=== PATIENT | female | born 1940 | race Caucasian/White ===

== ENCOUNTER 2018-01-18 11:07 | Inpatient (IN) ==
[2018-01-18] MEDS ORDERED: MORPHINE 2 MG/1 ML SYRINGE IV STA (12:17)
[2018-01-18] MEDS ORDERED: ONDANSETRON 4 MG/2 ML VIAL IV STA (12:17)
[2018-01-18] MEDS ORDERED: MORPHINE 2 MG/1 ML SYRINGE ONE ×2 (12:28→15:32)
[2018-01-18] MEDS ORDERED: ONDANSETRON 4 MG/2 ML VIAL ONE (12:29)
[2018-01-18 12:42] LABS: Basophils # 0.1 10*3/uL (0.0-0.2); Basophils % 0.5 % (0.0-0.8); Eosinophils # 0.1 10*3/uL (0.0-0.87); Eosinophils % 0.8 % (0.00-10.9); Hemoglobin 10.6 GM/DL (12.0-16.0); Immature Granulocytes % 0.5 %; Immature Granulocytes Absolute 0.06 #; Lymphocytes # 1.8 10*3/uL (1.4-4.0); Lymphocytes % 14.8 % (21.3-54.2); Mean Corpuscular HGB Conc 31.2 GM/DL (32-36); Mean Corpuscular Hemoglobin 29 PG (27-34); Mean Corpuscular Volume 92.1 FL (87-102); Mean Platelet Volume 10.6 FL (9.6-12.0); Monocytes # 0.8 10*3/uL (0.11-0.8); Monocytes % 6.6 % (1.7-12.7); Neutrophils # 9.3 10*3/uL (1.4-7.4); Neutrophils % 76.8 % (38.7-73.9); Platelet Count 296 T/CUMM (130-400); Red Blood Count 3.69 MC/CUMM (3.8-5.5); Red Cell Distribution Width 13.5 % (9.3-17.3); White Blood Count 12.1 T/CUMM (4-12)
[2018-01-18 13:04] LABS: Alanine Aminotransferase 18 U/L (13-56); Albumin 3.3 G/DL (3.4-5.0); Alkaline Phosphatase 118 U/L (45-117); Aspartate Amino Transferase 17 U/L (0-37); Bilirubin,Total < 0.39 MG/DL (0.2-1.0); Blood Urea Nitrogen 16 MG/DL (7-18); Calcium 8.9 MG/DL (8.5-10.1); Glucose 105 MG/DL (74-106); Osmolality,Calculated 275.7 MOS/KG (273-304); Potassium 4.2 MMOL/L (3.5-5.1); Sodium 138 MMOL/L (136-145); Total Protein 6.6 G/DL (6.4-8.3)
[2018-01-18] MEDS ORDERED: ACETAMINOPHEN 325 MG TABLET PO PRN (14:00)
[2018-01-18] MEDS: MORPHINE 2 MG/1 ML SYRINGE IV PRN ×2 (15:34→19:23)
[2018-01-18 15:39] LABS: Apearance,Urine CLEAR (Clear); Bilirubin,Urine Negative (Negative); Blood, Urine Negative (Negative); Glucose,Urine (UA) Negative (Negative); Ketones,Urine Negative (Negative); Mucus,Urine Occasional /LPF (Occasional); Nitrite,Urine Negative (Negative); Protein,Urine Negative; RBC,Urine <1 /HPF (0-4); Squamous Epithelial Cell,Urine Occasional /HPF (0-10); Urine Color Yellow (Yellow); Urine Specific Gravity 1.013 (1.001-1.035); Urine Urobilinogen < 2.0 EU/DL (0.2-1.0); WBC,Urine <1 /HPF (0-6)
[2018-01-18] MEDS: SODIUM CHLORIDE 0.9% 1,000 ML IV SCH (15:52)
[2018-01-18] MEDS ORDERED: LABETALOL 20 MG/4 ML SYRINGE IV PRN (18:32)
[2018-01-18] MEDS: FLUTICASONE/SALMETEROL 250-50 DISKUS 14 DOSE INH SCH (20:34)
[2018-01-18] MEDS: TAMOXIFEN 10 MG TABLET PO SCH (20:34)
[2018-01-18] MEDS: amLODIPine 10 MG TABLET PO SCH (20:34)
[2018-01-18] MEDS: traZODone 50 MG TABLET PO SCH (20:34)
[2018-01-18] MEDS: AMITRIPTYLINE 50 MG TABLET PO SCH (22:34)
[2018-01-19] MEDS: MORPHINE 2 MG/1 ML SYRINGE IV PRN ×2 (00:44→05:20)
[2018-01-19] MEDS: ONDANSETRON 4 MG/2 ML VIAL IV PRN ×4 (00:49→21:04)
[2018-01-19] MEDS: SODIUM CHLORIDE 0.9% 1,000 ML IV SCH ×3 (00:54→22:23)
[2018-01-19 06:24] LABS: Basophils # 0.1 10*3/uL (0.0-0.2); Basophils % 0.5 % (0.0-0.8); Eosinophils # 0.1 10*3/uL (0.0-0.87); Hematocrit 33.1 VOL% (35.7-47.0); Hemoglobin 10.8 GM/DL (12.0-16.0); Immature Granulocytes % 0.5 %; Immature Granulocytes Absolute 0.06 #; Lymphocytes # 1.9 10*3/uL (1.4-4.0); Lymphocytes % 15.2 % (21.3-54.2); Mean Corpuscular HGB Conc 32.6 GM/DL (32-36); Mean Corpuscular Hemoglobin 29 PG (27-34); Mean Corpuscular Volume 90.2 FL (87-102); Mean Platelet Volume 10.4 FL (9.6-12.0); Monocytes % 7.9 % (1.7-12.7); Neutrophils # 9.4 10*3/uL (1.4-7.4); Neutrophils % 74.9 % (38.7-73.9); Platelet Count 259 T/CUMM (130-400); Red Blood Count 3.67 MC/CUMM (3.8-5.5); Red Cell Distribution Width 13.6 % (9.3-17.3); White Blood Count 12.5 T/CUMM (4-12)
[2018-01-19 06:57] LABS: Calcium 8.6 MG/DL (8.5-10.1); Osmolality,Calculated 274.8 MOS/KG (273-304); Potassium 4.3 MMOL/L (3.5-5.1)
[2018-01-19 07:02] LABS: % Iron Saturation 16.5 % (18-50); Ferritin 19.7 ng/ml (8-252)
[2018-01-19 07:07] LABS: Folate 9.3 NG/ML (5.4-24.0); Vitamin B12 603 PG/ML (211-911)
[2018-01-19] MEDS ORDERED: ceFAZolin 1,000 MG in SYRINGE 1 EACH IV ONE (08:00)
[2018-01-19 08:05] LABS: Sedimentation Rate-Westergren 45 MM/HR (0-30)
[2018-01-19] MEDS ORDERED: ONDANSETRON 4 MG/2 ML VIAL ONE ×2 (09:20→11:30)
[2018-01-19] MEDS: FLUTICASONE/SALMETEROL 250-50 DISKUS 14 DOSE INH SCH ×2 (09:50→21:13)
[2018-01-19] MEDS: PANTOPRAZOLE 40 MG TABLET PO SCH (09:51)
[2018-01-19] MEDS ORDERED: PROMETHAZINE 25 MG/1 ML VIAL IM PRN (10:00)
[2018-01-19] MEDS ORDERED: TEMAZEPAM 7.5 MG CAPSULE PO PRN (10:00)
[2018-01-19] MEDS ORDERED: LACTULOSE 20 GM/30 ML UDCUP PO PRN (10:00)
[2018-01-19] MEDS ORDERED: BISACODYL 10 MG SUPP RECTAL PRN (10:00)
[2018-01-19] MEDS ORDERED: MAGNESIUM HYDROXIDE SUSP 30 ML UDCUP PO PRN (10:00)
[2018-01-19] MEDS ORDERED: diphenhydrAMINE CAP 25 MG CAPSULE PO PRN (10:00)
[2018-01-19] MEDS ORDERED: MORPHINE 2 MG/1 ML SYRINGE IV PRN (10:09)
[2018-01-19] MEDS ORDERED: PROPOFOL 200 MG/20 ML VIAL IV ONE (11:28)
[2018-01-19] MEDS ORDERED: fentaNYL 100 MCG/2 ML VIAL ONE (11:29)
[2018-01-19] MEDS ORDERED: ROCURONIUM 100 MG/10 ML VIAL IV ONE (11:29)
[2018-01-19] MEDS ORDERED: SEVOFLURANE 1 UNIT/15 MINUTE INH ONE (11:29)
[2018-01-19] MEDS ORDERED: SUCCINYLCHOLINE 200 MG/10 ML VIAL ONE (11:30)
[2018-01-19] MEDS ORDERED: TRANEXAMIC ACID 1,000 MG/10 ML VIAL IV ONE (11:31)
[2018-01-19] MEDS ORDERED: ACETAMINOPHEN 1,000 MG/100 ML VIAL IV ONE (11:31)
[2018-01-19] MEDS ORDERED: GLYCOPYRROLATE 0.4 MG/2 ML VIAL ONE (11:31)
[2018-01-19] MEDS ORDERED: NEOSTIGMINE 10 MG/10 ML VIAL ONE (11:32)
[2018-01-19 12:12] LABS: Hemoglobin A1 (Alkaline) 97.8 % (96.5-98.5); Hemoglobin A2 (Alkaline) 2.2 % (1.5-3.5)
[2018-01-19] MEDS: ceFAZolin 1,000 MG in SYRINGE 1 EACH IV SCH ×2 (15:15→21:11)
[2018-01-19] MEDS ORDERED: ONDANSETRON 4 MG/2 ML VIAL IV ONE (16:47)
[2018-01-19] MEDS: traZODone 50 MG TABLET PO SCH (21:12)
[2018-01-19] MEDS: amLODIPine 10 MG TABLET PO SCH (21:12)
[2018-01-19] MEDS: AMITRIPTYLINE 50 MG TABLET PO SCH (21:13)
[2018-01-19] MEDS: DOCUSATE SODIUM 100 MG CAPSULE PO SCH (21:13)
[2018-01-19] MEDS: TAMOXIFEN 10 MG TABLET PO SCH (21:13)
[2018-01-20] MEDS: ONDANSETRON 4 MG/2 ML VIAL IV PRN ×3 (01:47→15:02)
[2018-01-20] MEDS: FONDAPARINUX 2.5 MG/0.5 ML SYRINGE SUBCUT SCH (05:26)
[2018-01-20 06:03] LABS: Basophils % 0.2 % (0.0-0.8); Hematocrit 28.5 VOL% (35.7-47.0); Hemoglobin 9.1 GM/DL (12.0-16.0); Immature Granulocytes % 0.4 %; Immature Granulocytes Absolute 0.09 #; Lymphocytes # 1.9 10*3/uL (1.4-4.0); Lymphocytes % 9.3 % (21.3-54.2); Mean Corpuscular HGB Conc 31.9 GM/DL (32-36); Mean Corpuscular Hemoglobin 29 PG (27-34); Mean Corpuscular Volume 90.5 FL (87-102); Mean Platelet Volume 10.4 FL (9.6-12.0); Monocytes # 1.5 10*3/uL (0.11-0.8); Monocytes % 7.2 % (1.7-12.7); Neutrophils # 17.1 10*3/uL (1.4-7.4); Neutrophils % 82.9 % (38.7-73.9); Platelet Count 231 T/CUMM (130-400); Red Blood Count 3.15 MC/CUMM (3.8-5.5); Red Cell Distribution Width 13.5 % (9.3-17.3); White Blood Count 20.6 T/CUMM (4-12)
[2018-01-20 06:28] LABS: Giant Platelets Few; Hypochromasia 1+; Platelet Estimate Adequate
[2018-01-20 06:41] LABS: Calcium 8.2 MG/DL (8.5-10.1); Potassium 3.9 MMOL/L (3.5-5.1)
[2018-01-20] MEDS: SODIUM CHLORIDE 0.9% 1,000 ML IV SCH ×2 (06:48→20:37)
[2018-01-20] MEDS: PANTOPRAZOLE 40 MG TABLET PO SCH (09:49)
[2018-01-20] MEDS: DOCUSATE SODIUM 100 MG CAPSULE PO SCH ×2 (09:49→20:37)
[2018-01-20] MEDS: FLUTICASONE/SALMETEROL 250-50 DISKUS 14 DOSE INH SCH ×2 (09:50→20:36)
[2018-01-20] MEDS: FERROUS SULFATE 325 MG TABLET PO SCH ×2 (12:32→20:36)
[2018-01-20] MEDS: cefTRIAXone 2,000 MG in SYRINGE 1 EACH IV SCH (12:33)
[2018-01-20] MEDS: AMITRIPTYLINE 50 MG TABLET PO SCH (20:36)
[2018-01-20] MEDS: TAMOXIFEN 10 MG TABLET PO SCH (20:36)
[2018-01-20] MEDS: traZODone 50 MG TABLET PO SCH (20:37)
[2018-01-20] MEDS: amLODIPine 10 MG TABLET PO SCH (20:37)
[2018-01-21] MEDS: FONDAPARINUX 2.5 MG/0.5 ML SYRINGE SUBCUT SCH (03:46)
[2018-01-21 05:28] LABS: Basophils % 0.3 % (0.0-0.8); Eosinophils # 0.1 10*3/uL (0.0-0.87); Eosinophils % 0.9 % (0.00-10.9); Hematocrit 26.8 VOL% (35.7-47.0); Hemoglobin 8.5 GM/DL (12.0-16.0); Immature Granulocytes % 0.6 %; Lymphocytes # 1.6 10*3/uL (1.4-4.0); Lymphocytes % 10.1 % (21.3-54.2); Mean Corpuscular HGB Conc 31.7 GM/DL (32-36); Mean Corpuscular Hemoglobin 29 PG (27-34); Mean Corpuscular Volume 92.4 FL (87-102); Mean Platelet Volume 10.7 FL (9.6-12.0); Monocytes # 1.4 10*3/uL (0.11-0.8); Neutrophils # 12.5 10*3/uL (1.4-7.4); Neutrophils % 79.1 % (38.7-73.9); Platelet Count 209 T/CUMM (130-400); Red Cell Distribution Width 13.8 % (9.3-17.3); White Blood Count 15.8 T/CUMM (4-12)
[2018-01-21 05:54] LABS: Calcium 7.9 MG/DL (8.5-10.1); Osmolality,Calculated 275.7 MOS/KG (273-304); Potassium 4.3 MMOL/L (3.5-5.1)
[2018-01-21] MEDS: FERROUS SULFATE 325 MG TABLET PO SCH ×2 (10:05→21:35)
[2018-01-21] MEDS: DOCUSATE SODIUM 100 MG CAPSULE PO SCH ×2 (10:06→21:35)
[2018-01-21] MEDS: PANTOPRAZOLE 40 MG TABLET PO SCH (10:06)
[2018-01-21] MEDS: FLUTICASONE/SALMETEROL 250-50 DISKUS 14 DOSE INH SCH ×2 (10:14→21:35)
[2018-01-21] MEDS: SODIUM CHLORIDE 0.9% 1,000 ML IV SCH ×2 (10:16→23:35)
[2018-01-21] MEDS: cefTRIAXone 2,000 MG in SYRINGE 1 EACH IV SCH (12:51)
[2018-01-21] MEDS ORDERED: TUBERCULIN SKIN TEST 0.1 ML SYRINGE INTRADERM ONE (14:44)
[2018-01-21] MEDS: ONDANSETRON 4 MG/2 ML VIAL IV PRN (15:56)
[2018-01-21] MEDS: amLODIPine 10 MG TABLET PO SCH (21:35)
[2018-01-21] MEDS: TAMOXIFEN 10 MG TABLET PO SCH (21:35)
[2018-01-21] MEDS: traZODone 50 MG TABLET PO SCH (21:35)
[2018-01-21] MEDS: AMITRIPTYLINE 50 MG TABLET PO SCH (21:35)
[2018-01-22] MEDS: FONDAPARINUX 2.5 MG/0.5 ML SYRINGE SUBCUT SCH (05:00)
[2018-01-22 05:11] LABS: Basophils # 0.1 10*3/uL (0.0-0.2); Basophils % 0.3 % (0.0-0.8); Eosinophils # 0.1 10*3/uL (0.0-0.87); Eosinophils % 0.8 % (0.00-10.9); Hematocrit 26.8 VOL% (35.7-47.0); Hemoglobin 8.8 GM/DL (12.0-16.0); Immature Granulocytes % 0.7 %; Immature Granulocytes Absolute 0.11 #; Lymphocytes # 1.5 10*3/uL (1.4-4.0); Lymphocytes % 8.7 % (21.3-54.2); Mean Corpuscular HGB Conc 32.8 GM/DL (32-36); Mean Corpuscular Hemoglobin 30 PG (27-34); Mean Corpuscular Volume 89.9 FL (87-102); Mean Platelet Volume 10.7 FL (9.6-12.0); Monocytes # 1.2 10*3/uL (0.11-0.8); Neutrophils # 13.9 10*3/uL (1.4-7.4); Neutrophils % 82.5 % (38.7-73.9); Platelet Count 242 T/CUMM (130-400); Red Blood Count 2.98 MC/CUMM (3.8-5.5); Red Cell Distribution Width 14.1 % (9.3-17.3); White Blood Count 16.9 T/CUMM (4-12)
[2018-01-22] MEDS ORDERED: ALBUTEROL/IPRATROPIUM 3 ML NEB RESP TX ONE (09:21)
[2018-01-22] MEDS ORDERED: FUROSEMIDE 20 MG/2 ML VIAL IV SCH (09:30)
[2018-01-22] MEDS: FERROUS SULFATE 325 MG TABLET PO SCH ×2 (09:34→22:05)
[2018-01-22] MEDS: PANTOPRAZOLE 40 MG TABLET PO SCH (09:34)
[2018-01-22] MEDS: DOCUSATE SODIUM 100 MG CAPSULE PO SCH ×2 (09:34→22:05)
[2018-01-22] MEDS: FLUTICASONE/SALMETEROL 250-50 DISKUS 14 DOSE INH SCH ×2 (09:34→22:20)
[2018-01-22] MEDS: ALBUTEROL/IPRATROPIUM 3 ML NEB RESP TX SCH ×2 (12:01→19:15)
[2018-01-22] MEDS: ENOXAPARIN 80 MG/0.8 ML SYRINGE SUBCUT SCH ×2 (13:41→23:53)
[2018-01-22 13:48] LABS: ABG Base Excess 4.6 MMOL/L (-2.5-2.5); ABG HCO3 28.5 MMOL/L (20-26); ABG Oxygen Saturation 90.4 % (95-100); ABG PCO2 39.1 MM HG (35-48); ABG PH 7.472 (7.35-7.45); ABG PO2 57.9 MM HG (80-95); ABG TCO2 26.3 MMOL/L (23-27); Allen Test Positive; Pt O2 Delivery Device Venturi Mask
[2018-01-22] MEDS: cefTRIAXone 2,000 MG in SYRINGE 1 EACH IV SCH (13:55)
[2018-01-22] MEDS: TAMOXIFEN 10 MG TABLET PO SCH (22:04)
[2018-01-22] MEDS: traZODone 50 MG TABLET PO SCH (22:04)
[2018-01-22] MEDS: AMITRIPTYLINE 50 MG TABLET PO SCH (22:05)
[2018-01-22] MEDS: amLODIPine 10 MG TABLET PO SCH (22:10)
[2018-01-22 23:37] LABS: Apearance,Urine Slightly Hazy (Clear); Bilirubin,Urine Negative (Negative); Blood, Urine Negative (Negative); Glucose,Urine (UA) Negative (Negative); Hyaline Casts,Urine 3 /LPF (0-3); Ketones,Urine Negative (Negative); Mucus,Urine Occasional /LPF (Occasional); Nitrite,Urine Negative (Negative); Protein,Urine Negative; RBC,Urine 1 /HPF (0-4); Squamous Epithelial Cell,Urine Occasional /HPF (0-10); Urine Color Yellow (Yellow); Urine Specific Gravity 1.016 (1.001-1.035); Urine Urobilinogen < 2.0 EU/DL (0.2-1.0); WBC,Urine 2 /HPF (0-6)
[2018-01-23] MEDS: ALBUTEROL/IPRATROPIUM 3 ML NEB RESP TX SCH ×4 (00:15→20:59)
[2018-01-23] MEDS: FERROUS SULFATE 325 MG TABLET PO SCH ×2 (08:19→21:42)
[2018-01-23] MEDS: FLUTICASONE/SALMETEROL 250-50 DISKUS 14 DOSE INH SCH ×2 (08:19→22:10)
[2018-01-23] MEDS: DOCUSATE SODIUM 100 MG CAPSULE PO SCH ×2 (08:19→21:42)
[2018-01-23] MEDS: PANTOPRAZOLE 40 MG TABLET PO SCH (08:19)
[2018-01-23] MEDS: FUROSEMIDE 40 MG/4 ML VIAL IV SCH (08:19)
[2018-01-23] MEDS: ENOXAPARIN 80 MG/0.8 ML SYRINGE SUBCUT SCH (12:32)
[2018-01-23] MEDS: cefTRIAXone 2,000 MG in SYRINGE 1 EACH IV SCH (12:34)
[2018-01-23] MEDS: ONDANSETRON 4 MG/2 ML VIAL IV PRN (17:08)
[2018-01-23] MEDS: TAMOXIFEN 10 MG TABLET PO SCH (21:41)
[2018-01-23] MEDS: amLODIPine 10 MG TABLET PO SCH (21:41)
[2018-01-23] MEDS: traZODone 50 MG TABLET PO SCH (21:41)
[2018-01-23] MEDS: AMITRIPTYLINE 50 MG TABLET PO SCH ×2 (21:42)
[2018-01-23] MEDS: APIXABAN 5 MG TABLET PO SCH (21:42)
[2018-01-24] MEDS: ALBUTEROL/IPRATROPIUM 3 ML NEB RESP TX SCH ×4 (00:19→20:02)
[2018-01-24] MEDS: FUROSEMIDE 40 MG/4 ML VIAL IV SCH (09:36)
[2018-01-24] MEDS: FERROUS SULFATE 325 MG TABLET PO SCH ×2 (09:39→21:10)
[2018-01-24] MEDS: APIXABAN 5 MG TABLET PO SCH ×2 (09:39→21:10)
[2018-01-24] MEDS: DOCUSATE SODIUM 100 MG CAPSULE PO SCH ×2 (09:39→21:10)
[2018-01-24] MEDS: PANTOPRAZOLE 40 MG TABLET PO SCH (09:39)
[2018-01-24] MEDS: FLUTICASONE/SALMETEROL 250-50 DISKUS 14 DOSE INH SCH ×2 (10:05→21:12)
[2018-01-24] MEDS: methylPREDNISolone SOD SUC 40 MG/1 ML VIAL IV SCH ×2 (10:55→21:09)
[2018-01-24] MEDS: cefTRIAXone 2,000 MG in SYRINGE 1 EACH IV SCH (12:44)
[2018-01-24] MEDS: traZODone 50 MG TABLET PO SCH (21:10)
[2018-01-24] MEDS: AMITRIPTYLINE 50 MG TABLET PO SCH ×2 (21:10→21:17)
[2018-01-24] MEDS: TAMOXIFEN 10 MG TABLET PO SCH (21:16)
[2018-01-25] MEDS: ALBUTEROL/IPRATROPIUM 3 ML NEB RESP TX SCH ×3 (02:55→13:15)
[2018-01-25 05:35] LABS: Basophils % 0.1 % (0.0-0.8); Eosinophils % 0.1 % (0.00-10.9); Hematocrit 28.2 VOL% (35.7-47.0); Hemoglobin 9.3 GM/DL (12.0-16.0); Immature Granulocytes % 0.8 %; Immature Granulocytes Absolute 0.14 #; Mean Corpuscular Hemoglobin 29 PG (27-34); Mean Corpuscular Volume 89.2 FL (87-102); Mean Platelet Volume 10.9 FL (9.6-12.0); Monocytes # 0.5 10*3/uL (0.11-0.8); Monocytes % 2.7 % (1.7-12.7); NRBC # 0.02 10*3/uL; Neutrophils # 15.1 10*3/uL (1.4-7.4); Neutrophils % 90.3 % (38.7-73.9); Platelet Count 349 T/CUMM (130-400); Red Blood Count 3.16 MC/CUMM (3.8-5.5); Red Cell Distribution Width 14.1 % (9.3-17.3); White Blood Count 16.7 T/CUMM (4-12)
[2018-01-25 05:43] LABS: Calcium 8.8 MG/DL (8.5-10.1); Osmolality,Calculated 278.8 MOS/KG (273-304); Potassium 4.1 MMOL/L (3.5-5.1)
[2018-01-25] MEDS ORDERED: METOPROLOL SUCCINATE XL 25 MG TABLET PO SCH (09:00)
[2018-01-25] MEDS ORDERED: predniSONE 20 MG TABLET PO SCH (09:00)
[2018-01-25] MEDS ORDERED: LISINOPRIL 5 MG TABLET PO SCH (09:00)
[2018-01-25] MEDS: FUROSEMIDE 40 MG/4 ML VIAL IV SCH (09:20)
[2018-01-25] MEDS: FERROUS SULFATE 325 MG TABLET PO SCH (09:21)
[2018-01-25] MEDS: APIXABAN 5 MG TABLET PO SCH (09:21)
[2018-01-25] MEDS: DOCUSATE SODIUM 100 MG CAPSULE PO SCH (09:21)
[2018-01-25] MEDS: PANTOPRAZOLE 40 MG TABLET PO SCH (09:21)
[2018-01-25] MEDS: FLUTICASONE/SALMETEROL 250-50 DISKUS 14 DOSE INH SCH (09:22)
[2018-01-25] MEDS ORDERED: ASPIRIN EC 81 MG TABLET PO SCH (10:30)
[2018-01-25] MEDS: cefTRIAXone 2,000 MG in SYRINGE 1 EACH IV SCH (11:17)
[2018-01-25 11:31] VITALS: BP 131/58
== END 2018-01-25 15:25 | disposition swing bed (61) | DRG 469 ==
LOC: EDUNIT# → EDBD → N.ED 11:07 → N.EDINP 13:37 → SUATTDRO 13:37 → N.3E 17:40 → N.CC 01-22 11:28 → N.3E 01-23 12:06
PROVIDERS: ADMIT Hospitalist

== ENCOUNTER 2019-03-03 19:40 | Inpatient (IN) ==
[2019-03-03] MEDS ORDERED: MORPHINE 4 MG/1 ML VIAL IV STA (20:08)
[2019-03-03] MEDS ORDERED: FUROSEMIDE 100 MG/10 ML VIAL IV STA (20:08)
[2019-03-03] MEDS ORDERED: ONDANSETRON 4 MG/2 ML VIAL IV STA (20:08)
[2019-03-03] MEDS ORDERED: ALBUTEROL NEB SOLN 5 MG/ML 20 ML/BOTTLE RESP TX SCH (20:30)
[2019-03-03] MEDS ORDERED: SODIUM CHLORIDE 0.9% 1,700 ML IV ONE (20:49)
[2019-03-03 21:14] LABS: CKMB % 9.3 %
[2019-03-03 21:25] LABS: Basophils % 0.2 % (0.0-0.8); Hematocrit 26.2 VOL% (35.7-47.0); Hemoglobin 7.2 GM/DL (12.0-16.0); Immature Granulocytes % 1.2 %; Immature Granulocytes Absolute 0.26 #; Lymphocytes # 2.3 10*3/uL (1.4-4.0); Lymphocytes % 10.3 % (21.3-54.2); Mean Corpuscular HGB Conc 27.5 GM/DL (32-36); Mean Corpuscular Hemoglobin 23 PG (27-34); Mean Corpuscular Volume 82.1 FL (87-102); Mean Platelet Volume 11.1 FL (9.6-12.0); Monocytes # 1.7 10*3/uL (0.11-0.8); Monocytes % 7.3 % (1.7-12.7); NRBC # 0.04 10*3/uL; Neutrophils # 18.2 10*3/uL (1.4-7.4); Platelet Count 318 T/CUMM (130-400); Red Blood Count 3.19 MC/CUMM (3.8-5.5); Red Cell Distribution Width 18.2 % (9.3-17.3); White Blood Count 22.5 T/CUMM (4-12)
[2019-03-03 21:34] LABS: Lymphocytes 6 % (20-55); Segmented Neutrophils 88 % (50-85); Total Cells Counted 100
[2019-03-03 21:36] LABS: Platelet Estimate Normal; Polychromasia Few
[2019-03-03 21:37] LABS: Anisocytosis Slight
[2019-03-03 21:38] LABS: Hypochromasia Slight; Stomatocytes Few
[2019-03-03 21:39] LABS: Troponin I 5.77 NG/ML (0.00-0.045)
[2019-03-03] MEDS ORDERED: ALBUTEROL 2.5 MG/3 ML NEB RESP TX PRN (21:39)
[2019-03-03 21:41] LABS: Alanine Aminotransferase 33 U/L (13-56); Albumin 3.1 G/DL (3.4-5.0); Alkaline Phosphatase 59 U/L (45-117); Aspartate Amino Transferase 51 U/L (0-37); Bilirubin,Total < 0.39 MG/DL (0.2-1.0); Blood Urea Nitrogen 34 MG/DL (7-18); Glucose 98 MG/DL (74-106); Potassium 5.1 MMOL/L (3.5-5.1); Sodium 136 MMOL/L (136-145); Total Protein 6.2 G/DL (6.4-8.3)
[2019-03-03] MEDS ORDERED: DOCUSATE SODIUM 100 MG CAPSULE PO PRN (21:51)
[2019-03-03] MEDS ORDERED: ONDANSETRON 4 MG/2 ML VIAL IV PRN (21:51)
[2019-03-03] MEDS ORDERED: MORPHINE 4 MG/1 ML VIAL IV PRN (21:51)
[2019-03-03] MEDS ORDERED: ACETAMINOPHEN 325 MG TABLET PO PRN (21:51)
[2019-03-03 22:11] LABS: Apearance,Urine CLEAR (Clear); Bilirubin,Urine Negative (Negative); Blood, Urine Negative (Negative); Glucose,Urine (UA) Negative (Negative); Ketones,Urine Negative (Negative); Mucus,Urine Occasional /LPF (Occasional); Nitrite,Urine Negative (Negative); Protein,Urine Negative; Squamous Epithelial Cell,Urine Occasional /HPF (0-10); Urine Color Yellow (Yellow); Urine Specific Gravity 1.021 (1.001-1.035); Urine Urobilinogen < 2.0 EU/DL (0.2-1.0); WBC,Urine 2 /HPF (0-6)
[2019-03-03] MEDS ORDERED: NITROGLYCERIN SL 0.4 MG TABLET SL PRN (22:19)
[2019-03-03] MEDS ORDERED: SODIUM CHLORIDE 0.9% 1,000 ML IV PRN (22:38)
[2019-03-03] MEDS: traZODone 50 MG TABLET PO SCH (22:59)
[2019-03-03] MEDS: TAMOXIFEN 10 MG TABLET PO SCH (23:00)
[2019-03-03] MEDS: methylPREDNISolone SOD SUC 40 MG/1 ML VIAL IV SCH (23:01)
[2019-03-03] MEDS: FLUTICASONE/SALMETEROL 250-50 DISKUS 14 DOSE INH SCH (23:01)
[2019-03-03] MEDS: AMITRIPTYLINE 50 MG TABLET PO SCH (23:01)
[2019-03-03] MEDS: FERROUS SULFATE 325 MG TABLET PO SCH (23:01)
[2019-03-03] MEDS: LISINOPRIL 5 MG TABLET PO SCH (23:01)
[2019-03-03] MEDS: LEVOFLOXACIN INJ 750 MG in PREMIX 1 EACH IV SCH (23:02)
[2019-03-04] MEDS: ALBUTEROL/IPRATROPIUM 3 ML NEB RESP TX SCH ×4 (00:35→18:43)
[2019-03-04] MEDS: PIPERACILLIN/TAZOBACTAM 3,375 MG in SODIUM CHLORIDE 0.9% 100 ML IV SCH ×4 (01:13→16:11)
[2019-03-04 02:46] LABS: Hematocrit 22.6 VOL% (35.7-47.0); Hemoglobin 6.5 GM/DL (12.0-16.0); Immature Granulocytes % 0.7 %; Immature Granulocytes Absolute 0.11 #; Lymphocytes # 1.1 10*3/uL (1.4-4.0); Lymphocytes % 7.4 % (21.3-54.2); Mean Corpuscular HGB Conc 28.8 GM/DL (32-36); Mean Corpuscular Hemoglobin 23 PG (27-34); Mean Corpuscular Volume 79.9 FL (87-102); Mean Platelet Volume 10.9 FL (9.6-12.0); Monocytes # 0.6 10*3/uL (0.11-0.8); Monocytes % 3.9 % (1.7-12.7); Neutrophils # 13.1 10*3/uL (1.4-7.4); Platelet Count 248 T/CUMM (130-400); Red Blood Count 2.83 MC/CUMM (3.8-5.5); Red Cell Distribution Width 18.2 % (9.3-17.3); White Blood Count 14.9 T/CUMM (4-12)
[2019-03-04 03:18] LABS: Calcium 7.6 MG/DL (8.5-10.1); Osmolality,Calculated 283.8 MOS/KG (273-304); Potassium 4.4 MMOL/L (3.5-5.1); Risk Ratio 3.48; Thyroid Stimulating Hormone 1.61 uIU/ml (0.358-3.74); VLDL CHOLESTEROL 30.2 MG/DL
[2019-03-04] MEDS ORDERED: FUROSEMIDE 20 MG/2 ML VIAL IV ONE (05:16)
[2019-03-04] MEDS: methylPREDNISolone SOD SUC 40 MG/1 ML VIAL IV SCH ×3 (05:49→21:01)
[2019-03-04] MEDS ORDERED: ENOXAPARIN 60 MG/0.6 ML SYRINGE SUBCUT SCH (06:00)
[2019-03-04] MEDS ORDERED: IPRATROPIUM 500 MCG/2.5 ML NEB RESP TX SCH (07:00)
[2019-03-04] MEDS: FUROSEMIDE 20 MG/2 ML VIAL IV SCH ×2 (08:32→16:11)
[2019-03-04 12:05] LABS: % Iron Saturation 48.2 % (18-50)
[2019-03-04 12:13] LABS: Folate > 24.0 NG/ML (5.4-24.0); Vitamin B12 476 PG/ML (211-911)
[2019-03-04] MEDS: DORNASE ALFA 2.5 MG/2.5 ML VIAL RESP TX SCH (13:09)
[2019-03-04 13:57] LABS: Hematocrit 32.8 VOL% (35.7-47.0)
[2019-03-04] MEDS ORDERED: TUBERCULIN SKIN TEST 0.1 ML SYRINGE INTRADERM ONE (14:02)
[2019-03-04 14:03] LABS: Hemoglobin 10.1 GM/DL (12.0-16.0)
[2019-03-04] MEDS: FERROUS SULFATE 325 MG TABLET PO SCH ×2 (14:08→21:01)
[2019-03-04] MEDS: METOPROLOL SUCCINATE XL 25 MG TABLET PO SCH (14:09)
[2019-03-04] MEDS: ASPIRIN EC 81 MG TABLET PO SCH (14:09)
[2019-03-04] MEDS: MONTELUKAST 10 MG TABLET PO SCH ×2 (14:09→21:12)
[2019-03-04] MEDS: APIXABAN 5 MG TABLET PO SCH ×2 (14:09→21:01)
[2019-03-04] MEDS: LISINOPRIL 5 MG TABLET PO SCH ×2 (14:09→21:01)
[2019-03-04] MEDS: PANTOPRAZOLE 20 MG TABLET PO SCH (14:09)
[2019-03-04] MEDS: FLUTICASONE/SALMETEROL 250-50 DISKUS 14 DOSE INH SCH ×2 (14:13→21:10)
[2019-03-04] MEDS: TAMOXIFEN 10 MG TABLET PO SCH (21:00)
[2019-03-04] MEDS: AMITRIPTYLINE 50 MG TABLET PO SCH (21:01)
[2019-03-04] MEDS: traZODone 50 MG TABLET PO SCH (21:01)
[2019-03-04] MEDS: LEVOFLOXACIN INJ 750 MG in PREMIX 1 EACH IV SCH (21:06)
[2019-03-05] MEDS: PIPERACILLIN/TAZOBACTAM 3,375 MG in SODIUM CHLORIDE 0.9% 100 ML IV SCH ×4 (00:07→23:50)
[2019-03-05] MEDS: ALBUTEROL/IPRATROPIUM 3 ML NEB RESP TX SCH ×4 (00:07→19:05)
[2019-03-05 04:35] LABS: Basophils % 0.1 % (0.0-0.8); Hematocrit 29.8 VOL% (35.7-47.0); Immature Granulocytes % 1.4 %; Immature Granulocytes Absolute 0.19 #; Lymphocytes # 1.2 10*3/uL (1.4-4.0); Lymphocytes % 8.5 % (21.3-54.2); Mean Corpuscular HGB Conc 30.2 GM/DL (32-36); Mean Corpuscular Hemoglobin 25 PG (27-34); Mean Platelet Volume 10.9 FL (9.6-12.0); Monocytes # 0.8 10*3/uL (0.11-0.8); NRBC # 0.02 10*3/uL; Neutrophils # 11.4 10*3/uL (1.4-7.4); Platelet Count 254 T/CUMM (130-400); Red Blood Count 3.68 MC/CUMM (3.8-5.5); Red Cell Distribution Width 17.2 % (9.3-17.3); White Blood Count 13.6 T/CUMM (4-12)
[2019-03-05 05:34] LABS: Calcium 7.7 MG/DL (8.5-10.1); Osmolality,Calculated 284.5 MOS/KG (273-304); Potassium 3.9 MMOL/L (3.5-5.1)
[2019-03-05] MEDS: methylPREDNISolone SOD SUC 40 MG/1 ML VIAL IV SCH ×3 (05:59→21:00)
[2019-03-05] MEDS: DORNASE ALFA 2.5 MG/2.5 ML VIAL RESP TX SCH ×2 (07:05→19:10)
[2019-03-05] MEDS: FERROUS SULFATE 325 MG TABLET PO SCH ×2 (09:28→21:00)
[2019-03-05] MEDS: APIXABAN 5 MG TABLET PO SCH ×2 (09:28→20:59)
[2019-03-05] MEDS: PANTOPRAZOLE 20 MG TABLET PO SCH (09:28)
[2019-03-05] MEDS: METOPROLOL SUCCINATE XL 25 MG TABLET PO SCH (09:29)
[2019-03-05] MEDS: MONTELUKAST 10 MG TABLET PO SCH ×2 (09:29→20:59)
[2019-03-05] MEDS: ASPIRIN EC 81 MG TABLET PO SCH (09:29)
[2019-03-05] MEDS: LISINOPRIL 5 MG TABLET PO SCH ×2 (09:29→20:59)
[2019-03-05] MEDS: FUROSEMIDE 20 MG/2 ML VIAL IV SCH ×2 (09:30→16:07)
[2019-03-05] MEDS: FLUTICASONE/SALMETEROL 250-50 DISKUS 14 DOSE INH SCH ×2 (09:41→21:04)
[2019-03-05] MEDS: traZODone 50 MG TABLET PO SCH (20:59)
[2019-03-05] MEDS: AMITRIPTYLINE 50 MG TABLET PO SCH (21:00)
[2019-03-05] MEDS: LEVOFLOXACIN INJ 750 MG in PREMIX 1 EACH IV SCH (21:00)
[2019-03-05] MEDS: TAMOXIFEN 10 MG TABLET PO SCH (21:03)
[2019-03-06] MEDS: CARVEDILOL 3.125 MG TABLET PO SCH ×2 (00:24→08:49)
[2019-03-06] MEDS: ALBUTEROL/IPRATROPIUM 3 ML NEB RESP TX SCH ×4 (00:46→19:23)
[2019-03-06] MEDS: methylPREDNISolone SOD SUC 40 MG/1 ML VIAL IV SCH ×3 (06:12→21:46)
[2019-03-06] MEDS: PIPERACILLIN/TAZOBACTAM 3,375 MG in SODIUM CHLORIDE 0.9% 100 ML IV SCH ×3 (06:15→23:59)
[2019-03-06] MEDS: DORNASE ALFA 2.5 MG/2.5 ML VIAL RESP TX SCH ×2 (07:11→19:30)
[2019-03-06] MEDS: MONTELUKAST 10 MG TABLET PO SCH ×2 (08:48→21:45)
[2019-03-06] MEDS: LISINOPRIL 5 MG TABLET PO SCH ×2 (08:48→21:45)
[2019-03-06] MEDS: ASPIRIN EC 81 MG TABLET PO SCH (08:49)
[2019-03-06] MEDS: APIXABAN 5 MG TABLET PO SCH ×2 (08:49→21:46)
[2019-03-06] MEDS: FLUTICASONE/SALMETEROL 250-50 DISKUS 14 DOSE INH SCH ×2 (08:49→21:44)
[2019-03-06] MEDS: FERROUS SULFATE 325 MG TABLET PO SCH ×2 (08:49→21:46)
[2019-03-06] MEDS: PANTOPRAZOLE 20 MG TABLET PO SCH (08:49)
[2019-03-06] MEDS: FUROSEMIDE 20 MG/2 ML VIAL IV SCH ×2 (08:50→15:02)
[2019-03-06] MEDS ORDERED: CARVEDILOL 3.125 MG TABLET PO ONE (16:01)
[2019-03-06] MEDS: traZODone 50 MG TABLET PO SCH (21:45)
[2019-03-06] MEDS: TAMOXIFEN 10 MG TABLET PO SCH (21:45)
[2019-03-06] MEDS: CARVEDILOL 6.25 MG TABLET PO SCH (21:45)
[2019-03-06] MEDS: AMITRIPTYLINE 50 MG TABLET PO SCH (21:46)
[2019-03-06] MEDS: LEVOFLOXACIN INJ 750 MG in PREMIX 1 EACH IV SCH (21:58)
[2019-03-07] MEDS: ALBUTEROL/IPRATROPIUM 3 ML NEB RESP TX SCH ×3 (01:00→13:18)
[2019-03-07 05:08] LABS: Basophils % 0.2 % (0.0-0.8); Hematocrit 31.8 VOL% (35.7-47.0); Hemoglobin 9.3 GM/DL (12.0-16.0); Immature Granulocytes % 1.3 %; Immature Granulocytes Absolute 0.19 #; Mean Corpuscular HGB Conc 29.2 GM/DL (32-36); Mean Corpuscular Hemoglobin 25 PG (27-34); Mean Corpuscular Volume 84.1 FL (87-102); Mean Platelet Volume 10.4 FL (9.6-12.0); Monocytes # 0.8 10*3/uL (0.11-0.8); Monocytes % 5.5 % (1.7-12.7); Neutrophils # 12.1 10*3/uL (1.4-7.4); Platelet Count 254 T/CUMM (130-400); Red Blood Count 3.78 MC/CUMM (3.8-5.5); Red Cell Distribution Width 19.3 % (9.3-17.3); White Blood Count 14.1 T/CUMM (4-12)
[2019-03-07 05:32] LABS: Albumin 2.3 G/DL (3.4-5.0); Bilirubin,Total 0.6 MG/DL (0.2-1.0); Calcium 7.9 MG/DL (8.5-10.1); Osmolality,Calculated 287.4 MOS/KG (273-304); Potassium 3.6 MMOL/L (3.5-5.1); Total Protein 5.3 G/DL (6.4-8.3)
[2019-03-07] MEDS: methylPREDNISolone SOD SUC 40 MG/1 ML VIAL IV SCH (05:52)
[2019-03-07] MEDS: PIPERACILLIN/TAZOBACTAM 3,375 MG in SODIUM CHLORIDE 0.9% 100 ML IV SCH ×2 (05:56→06:00)
[2019-03-07] MEDS: DORNASE ALFA 2.5 MG/2.5 ML VIAL RESP TX SCH (07:31)
[2019-03-07] MEDS: APIXABAN 5 MG TABLET PO SCH (08:35)
[2019-03-07] MEDS: FERROUS SULFATE 325 MG TABLET PO SCH (08:35)
[2019-03-07] MEDS: PANTOPRAZOLE 20 MG TABLET PO SCH (08:35)
[2019-03-07] MEDS: FUROSEMIDE 20 MG/2 ML VIAL IV SCH (08:35)
[2019-03-07] MEDS: FLUTICASONE/SALMETEROL 250-50 DISKUS 14 DOSE INH SCH (08:36)
[2019-03-07] MEDS: ASPIRIN EC 81 MG TABLET PO SCH (08:36)
[2019-03-07] MEDS: LISINOPRIL 5 MG TABLET PO SCH (08:36)
[2019-03-07] MEDS: MONTELUKAST 10 MG TABLET PO SCH (08:36)
[2019-03-07] MEDS: CARVEDILOL 6.25 MG TABLET PO SCH (08:36)
[2019-03-07 12:31] VITALS: BP 139/68
[2019-03-07] MEDS ORDERED: ROSUVASTATIN 20 MG TABLET PO SCH (21:00)
[2019-03-07] MEDS ORDERED: ROSUVASTATIN 10 MG TABLET PO SCH (21:00)
[2019-03-08] MEDS ORDERED: FUROSEMIDE 40 MG TABLET PO SCH (09:00)
== END 2019-03-07 15:36 | disposition swing bed (61) | DRG 280 ==
LOC: EDUNIT# → EDBD → N.ED 19:40 → N.EDINP 21:07 → N.TELES 21:24
PROVIDERS: ADMIT Internal Medicine; ATTEND Internal Medicine

== ENCOUNTER 2021-02-05 11:00 | Inpatient (IN) ==
[2021-02-05] MEDS ORDERED: methylPREDNISolone SOD SUC 125 MG/2 ML VIAL IV STA (11:44)
[2021-02-05] MEDS ORDERED: ALBUTEROL/IPRATROPIUM 3 ML NEB RESP TX STA (11:44)
[2021-02-05 11:54] LABS: Basophils # 0.1 10*3/uL (0.0-0.2); Basophils % 0.5 % (0.0-0.8); Eosinophils # 0.2 10*3/uL (0.0-0.87); Eosinophils % 1.4 % (0.00-10.9); Hematocrit 35.2 VOL% (35.7-47.0); Hemoglobin 11.1 GM/DL (12.0-16.0); Immature Granulocytes % 1.1 %; Immature Granulocytes Absolute 0.16 #; Lymphocytes # 1.8 10*3/uL (1.4-4.0); Lymphocytes % 12.4 % (21.3-54.2); Mean Corpuscular HGB Conc 31.5 GM/DL (32-36); Mean Corpuscular Volume 94.6 FL (87-102); Mean Platelet Volume 9.7 FL (9.6-12.0); Monocytes % 7.9 % (1.7-12.7); Neutrophils % 76.7 % (38.7-73.9); Platelet Count 283 T/CUMM (130-400); Red Blood Count 3.72 MC/CUMM (3.8-5.5); Red Cell Distribution Width 13.2 % (9.3-17.3); White Blood Count 14.6 T/CUMM (4-12)
[2021-02-05 12:14] LABS: Alanine Aminotransferase 15 U/L (13-56); Albumin 2.8 G/DL (3.4-5.0); Alkaline Phosphatase 56 U/L (45-117); Aspartate Amino Transferase 20 U/L (0-37); Bilirubin,Total < 0.39 MG/DL (0.2-1.0); Blood Urea Nitrogen 34 MG/DL (7-18); Carbon Dioxide 32 MMOL/L (21-32); Estimated Glom Filtration Rate 28 ML/MIN; Glucose 108 MG/DL (74-106); Osmolality,Calculated 278.1 MOS/KG (273-304); Potassium 4.8 MMOL/L (3.5-5.1); Sodium 135 MMOL/L (136-145); Total Protein 6.4 G/DL (5.0-7.5)
[2021-02-05] MEDS ORDERED: hydrALAZINE 20 MG/1 ML VIAL IV PRN (14:50)
[2021-02-05] MEDS ORDERED: DEXTROSE 50% 25 GM/50 ML VIAL IV PRN (14:50)
[2021-02-05] MEDS ORDERED: ACETAMINOPHEN 325 MG TABLET PO PRN (14:50)
[2021-02-05] MEDS ORDERED: GLUCAGON 1 MG VIAL IM PRN (14:50)
[2021-02-05] MEDS ORDERED: traMADol 50 MG TABLET PO PRN (14:55)
[2021-02-05] MEDS ORDERED: FLUTICASONE 50 MCG NASAL SPRAY 16 GM BOTTLE BOTH NARES PRN (14:55)
[2021-02-05] MEDS ORDERED: BENZONATATE 100 MG CAPSULE PO PRN (14:55)
[2021-02-05] MEDS ORDERED: OLANZapine 2.5 MG TABLET PO PRN (14:55)
[2021-02-05] MEDS ORDERED: SODIUM CHLORIDE 0.9% 1,000 ML IV SCH (15:00)
[2021-02-05] MEDS ORDERED: ENOXAPARIN 40 MG/0.4 ML SYRINGE SUBCUT SCH (15:00)
[2021-02-05 15:20] LABS: Risk Ratio 2.36; Thyroid Stimulating Hormone 0.641 uIU/ml (0.358-3.74); VLDL CHOLESTEROL 25.2 MG/DL
[2021-02-05] MEDS: ALBUTEROL/IPRATROPIUM 3 ML NEB RESP TX SCH (20:00)
[2021-02-05] MEDS: traMADol 50 MG TABLET PO SCH (21:20)
[2021-02-05] MEDS: PIPERACILLIN/TAZOBACTAM 3,375 MG in SODIUM CHLORIDE 0.9% 100 ML IV SCH (21:21)
[2021-02-05] MEDS: CETIRIZINE 10 MG TABLET PO SCH (21:23)
[2021-02-05] MEDS: traZODone 50 MG TABLET PO SCH (22:28)
[2021-02-06] MEDS: ALBUTEROL/IPRATROPIUM 3 ML NEB RESP TX SCH ×4 (00:35→19:58)
[2021-02-06] MEDS: LEVOTHYROXINE 75 MCG TABLET PO SCH (05:41)
[2021-02-06] MEDS: PIPERACILLIN/TAZOBACTAM 3,375 MG in SODIUM CHLORIDE 0.9% 100 ML IV SCH ×3 (05:41→20:15)
[2021-02-06] MEDS: PANTOPRAZOLE 40 MG TABLET PO SCH (05:41)
[2021-02-06 06:07] LABS: Basophils % 0.1 % (0.0-0.8); Hematocrit 29.2 VOL% (35.7-47.0); Hemoglobin 9.2 GM/DL (12.0-16.0); Immature Granulocytes % 1.3 %; Immature Granulocytes Absolute 0.21 #; Lymphocytes # 1.3 10*3/uL (1.4-4.0); Lymphocytes % 7.5 % (21.3-54.2); Mean Corpuscular HGB Conc 31.5 GM/DL (32-36); Mean Corpuscular Volume 95.7 FL (87-102); Monocytes % 3.5 % (1.7-12.7); Neutrophils % 87.6 % (38.7-73.9); Platelet Count 235 T/CUMM (130-400); Red Blood Count 3.05 MC/CUMM (3.8-5.5); Red Cell Distribution Width 13.2 % (9.3-17.3); White Blood Count 16.7 T/CUMM (4-12)
[2021-02-06 06:31] LABS: Calcium 8.6 MG/DL (8.5-10.1); Potassium 5.2 MMOL/L (3.5-5.1)
[2021-02-06] MEDS ORDERED: ENOXAPARIN 40 MG/0.4 ML SYRINGE SUBCUT SCH (08:00)
[2021-02-06] MEDS: DULoxetine 30 MG CAPSULE PO SCH (08:56)
[2021-02-06] MEDS: amLODIPine 5 MG TABLET PO SCH (08:57)
[2021-02-06] MEDS: FERROUS SULFATE 325 MG TABLET PO SCH (08:57)
[2021-02-06] MEDS: WARFARIN 3 MG TABLET PO SCH (08:57)
[2021-02-06] MEDS: METOPROLOL SUCCINATE XL 50 MG TABLET PO SCH (08:58)
[2021-02-06] MEDS: MULTIVITAMIN (CENTRUM) TABLET PO SCH (08:58)
[2021-02-06] MEDS: SODIUM CHLORIDE 0.9% 1,000 ML IV SCH ×2 (08:59→23:20)
[2021-02-06] MEDS: MONTELUKAST 10 MG TABLET PO SCH (09:01)
[2021-02-06] MEDS: methylPREDNISolone SOD SUC 40 MG/1 ML VIAL IV SCH ×3 (09:03→20:13)
[2021-02-06] MEDS ORDERED: MAGNESIUM HYDROXIDE SUSP 30 ML UDCUP PO PRN (14:13)
[2021-02-06] MEDS ORDERED: LACTULOSE 20 GM/30 ML UDCUP PO PRN (14:14)
[2021-02-06] MEDS: CETIRIZINE 10 MG TABLET PO SCH (20:14)
[2021-02-06] MEDS: traZODone 50 MG TABLET PO SCH (20:14)
[2021-02-06] MEDS: traMADol 50 MG TABLET PO SCH (20:14)
[2021-02-07] MEDS: ALBUTEROL/IPRATROPIUM 3 ML NEB RESP TX SCH ×4 (01:00→19:56)
[2021-02-07] MEDS: PIPERACILLIN/TAZOBACTAM 3,375 MG in SODIUM CHLORIDE 0.9% 100 ML IV SCH ×3 (05:25→22:22)
[2021-02-07] MEDS: methylPREDNISolone SOD SUC 40 MG/1 ML VIAL IV SCH ×3 (05:25→17:59)
[2021-02-07] MEDS: PANTOPRAZOLE 40 MG TABLET PO SCH (05:38)
[2021-02-07] MEDS: LEVOTHYROXINE 75 MCG TABLET PO SCH (05:38)
[2021-02-07 06:09] LABS: Basophils % 0.1 % (0.0-0.8); Hemoglobin 9.2 GM/DL (12.0-16.0); Immature Granulocytes Absolute 0.21 #; Lymphocytes # 1.3 10*3/uL (1.4-4.0); Lymphocytes % 5.8 % (21.3-54.2); Mean Corpuscular HGB Conc 31.7 GM/DL (32-36); Mean Corpuscular Volume 95.4 FL (87-102); Mean Platelet Volume 9.9 FL (9.6-12.0); Neutrophils % 91.1 % (38.7-73.9); Platelet Count 262 T/CUMM (130-400); Red Blood Count 3.04 MC/CUMM (3.8-5.5); Red Cell Distribution Width 13.2 % (9.3-17.3); White Blood Count 22.1 T/CUMM (4-12)
[2021-02-07 06:18] LABS: INR 1.1
[2021-02-07 06:29] LABS: Band Neutrophils 1 % (0-10); Hypochromasia 1+; Lymphocytes 8 % (20-55); Microcytosis 1+; Platelet Estimate Adequate; Segmented Neutrophils 90 % (50-85); Total Cells Counted 100
[2021-02-07 06:32] LABS: Calcium 8.4 MG/DL (8.5-10.1); Osmolality,Calculated 279.7 MOS/KG (273-304); Potassium 4.6 MMOL/L (3.5-5.1)
[2021-02-07 06:33] LABS: Total Protein 5.8 G/DL (5.0-7.5)
[2021-02-07 09:15] LABS: Eosinophils,Pleural Fluid 1 %; Lymphocytes,Pleural Fluid 88 %; Monocytes,Pleural Fluid 1 %; Neutrophils,Pleural Fluid 10 %
[2021-02-07 09:24] LABS: Amylase,Pleural Fluid 23 U/L; Glucose,Pleural Fluid 136 MG/DL; LDH,Pleural Fluid 224 U/L
[2021-02-07 09:38] LABS: RBC,Pleural Fluid 20963 T/CUMM
[2021-02-07] MEDS: MULTIVITAMIN (CENTRUM) TABLET PO SCH (09:49)
[2021-02-07] MEDS: MONTELUKAST 10 MG TABLET PO SCH (09:49)
[2021-02-07] MEDS: METOPROLOL SUCCINATE XL 50 MG TABLET PO SCH (09:49)
[2021-02-07] MEDS: FERROUS SULFATE 325 MG TABLET PO SCH (09:49)
[2021-02-07] MEDS: amLODIPine 5 MG TABLET PO SCH (09:49)
[2021-02-07] MEDS: DULoxetine 30 MG CAPSULE PO SCH (09:49)
[2021-02-07] MEDS: SODIUM CHLORIDE 0.9% 1,000 ML IV SCH ×2 (09:52→19:13)
[2021-02-07] MEDS ORDERED: methylPREDNISolone SOD SUC 40 MG/1 ML VIAL IV SCH (12:00)
[2021-02-07] MEDS: FUROSEMIDE 40 MG/4 ML VIAL IV SCH (15:54)
[2021-02-07] MEDS ORDERED: FUROSEMIDE 40 MG/4 ML VIAL IM SCH (16:00)
[2021-02-07] MEDS: ONDANSETRON 4 MG/2 ML VIAL IV PRN ×2 (17:56→22:25)
[2021-02-07] MEDS: ENOXAPARIN 80 MG/0.8 ML SYRINGE SUBCUT SCH (17:57)
[2021-02-07] MEDS: traZODone 50 MG TABLET PO SCH (22:25)
[2021-02-07] MEDS: CETIRIZINE 10 MG TABLET PO SCH (22:25)
[2021-02-07] MEDS: traMADol 50 MG TABLET PO SCH (22:25)
[2021-02-08] MEDS: ALBUTEROL/IPRATROPIUM 3 ML NEB RESP TX SCH ×4 (00:37→19:45)
[2021-02-08] MEDS: methylPREDNISolone SOD SUC 40 MG/1 ML VIAL IV SCH (04:49)
[2021-02-08] MEDS: PIPERACILLIN/TAZOBACTAM 3,375 MG in SODIUM CHLORIDE 0.9% 100 ML IV SCH ×3 (04:49→21:17)
[2021-02-08] MEDS: ENOXAPARIN 80 MG/0.8 ML SYRINGE SUBCUT SCH ×2 (05:32→18:29)
[2021-02-08] MEDS: LEVOTHYROXINE 75 MCG TABLET PO SCH (05:32)
[2021-02-08] MEDS: PANTOPRAZOLE 40 MG TABLET PO SCH (05:32)
[2021-02-08 05:49] LABS: Basophils % 0.1 % (0.0-0.8); Hemoglobin 9.8 GM/DL (12.0-16.0); Immature Granulocytes % 1.5 %; Immature Granulocytes Absolute 0.36 #; Lymphocytes # 1.5 10*3/uL (1.4-4.0); Mean Corpuscular HGB Conc 31.6 GM/DL (32-36); Mean Corpuscular Volume 95.1 FL (87-102); Mean Platelet Volume 9.9 FL (9.6-12.0); Monocytes % 4.3 % (1.7-12.7); NRBC # 0.02 10*3/uL; Neutrophils % 88.1 % (38.7-73.9); Platelet Count 289 T/CUMM (130-400); Red Blood Count 3.26 MC/CUMM (3.8-5.5); Red Cell Distribution Width 13.2 % (9.3-17.3); White Blood Count 24.3 T/CUMM (4-12)
[2021-02-08 05:55] LABS: INR 1.2; PT Patient Result 12.4 SECS (9.8-11.9)
[2021-02-08 05:58] LABS: Calcium 8.6 MG/DL (8.5-10.1); Osmolality,Calculated 273.2 MOS/KG (273-304); Potassium 4.3 MMOL/L (3.5-5.1)
[2021-02-08 06:24] LABS: Hypochromasia 1+; Microcytosis 1+; Ovalocytes Slight
[2021-02-08 06:25] LABS: Platelet Estimate Normal
[2021-02-08] MEDS ORDERED: methylPREDNISolone SOD SUC 40 MG/1 ML VIAL IV SCH (08:00)
[2021-02-08] MEDS: DULoxetine 30 MG CAPSULE PO SCH (08:43)
[2021-02-08] MEDS: MONTELUKAST 10 MG TABLET PO SCH (08:43)
[2021-02-08] MEDS: WARFARIN 3 MG TABLET PO SCH (08:44)
[2021-02-08] MEDS: amLODIPine 5 MG TABLET PO SCH (08:45)
[2021-02-08] MEDS: FERROUS SULFATE 325 MG TABLET PO SCH (08:46)
[2021-02-08] MEDS: METOPROLOL SUCCINATE XL 50 MG TABLET PO SCH (08:46)
[2021-02-08] MEDS: FUROSEMIDE 40 MG/4 ML VIAL IV SCH (08:47)
[2021-02-08] MEDS: MULTIVITAMIN (CENTRUM) TABLET PO SCH (08:52)
[2021-02-08 15:21] LABS: CEA, Pleural Fluid 18 ng/mL
[2021-02-08] MEDS ORDERED: WARFARIN 3 MG TABLET PO ONE (15:32)
[2021-02-08] MEDS: traZODone 50 MG TABLET PO SCH (21:15)
[2021-02-08] MEDS: CETIRIZINE 10 MG TABLET PO SCH (21:16)
[2021-02-08] MEDS: predniSONE 20 MG TABLET PO SCH (21:16)
[2021-02-08] MEDS: traMADol 50 MG TABLET PO SCH (21:16)
[2021-02-09] MEDS: ALBUTEROL/IPRATROPIUM 3 ML NEB RESP TX SCH ×2 (01:50→08:24)
[2021-02-09 04:33] LABS: Basophils % 0.2 % (0.0-0.8); Hematocrit 29.5 VOL% (35.7-47.0); Hemoglobin 9.4 GM/DL (12.0-16.0); Immature Granulocytes % 2.1 %; Immature Granulocytes Absolute 0.36 #; Lymphocytes # 1.2 10*3/uL (1.4-4.0); Lymphocytes % 6.9 % (21.3-54.2); Mean Corpuscular HGB Conc 31.9 GM/DL (32-36); Mean Corpuscular Volume 91.9 FL (87-102); Mean Platelet Volume 9.6 FL (9.6-12.0); Monocytes % 4.1 % (1.7-12.7); Neutrophils % 86.7 % (38.7-73.9); Platelet Count 232 T/CUMM (130-400); Red Blood Count 3.21 MC/CUMM (3.8-5.5); Red Cell Distribution Width 13.1 % (9.3-17.3)
[2021-02-09 04:41] LABS: INR 1.5; PT Patient Result 15.9 SECS (9.8-11.9)
[2021-02-09] MEDS: ENOXAPARIN 80 MG/0.8 ML SYRINGE SUBCUT SCH (05:43)
[2021-02-09] MEDS: LEVOTHYROXINE 75 MCG TABLET PO SCH (05:43)
[2021-02-09] MEDS: PANTOPRAZOLE 40 MG TABLET PO SCH (05:43)
[2021-02-09] MEDS: PIPERACILLIN/TAZOBACTAM 3,375 MG in SODIUM CHLORIDE 0.9% 100 ML IV SCH (05:47)
[2021-02-09 07:56] VITALS: BP 137/85
[2021-02-09] MEDS ORDERED: FUROSEMIDE 40 MG/4 ML VIAL IV SCH (09:00)
[2021-02-09] MEDS: DULoxetine 30 MG CAPSULE PO SCH (09:24)
[2021-02-09] MEDS: predniSONE 20 MG TABLET PO SCH (09:25)
[2021-02-09] MEDS: amLODIPine 5 MG TABLET PO SCH (09:25)
[2021-02-09] MEDS: MONTELUKAST 10 MG TABLET PO SCH (09:25)
[2021-02-09] MEDS: MULTIVITAMIN (CENTRUM) TABLET PO SCH (09:25)
[2021-02-09] MEDS: WARFARIN 3 MG TABLET PO SCH (09:26)
[2021-02-09] MEDS: METOPROLOL SUCCINATE XL 50 MG TABLET PO SCH (09:26)
[2021-02-09] MEDS: FERROUS SULFATE 325 MG TABLET PO SCH (09:26)
[2021-02-09] MEDS ORDERED: WARFARIN 3 MG TABLET PO ONE (10:59)
== END 2021-02-09 14:17 | disposition home health service (06) | DRG 194 ==
LOC: N.ED 11:00 → N.EDINP 15:28 → N.4E 16:03
PROVIDERS: ADMIT Internal Medicine; ATTEND Internal Medicine

== ENCOUNTER 2021-02-11 12:45 | Inpatient (IN) ==
[2021-02-11] MEDS ORDERED: NITROGLYCERIN 2% OINT 1 INCH/GM PACK TOP STA (13:04)
[2021-02-11] MEDS ORDERED: ASPIRIN 325 MG TABLET PO STA (13:04)
[2021-02-11] MEDS ORDERED: fentaNYL 100 MCG/2 ML VIAL IV STA (13:05)
[2021-02-11] MEDS ORDERED: ONDANSETRON 4 MG/2 ML VIAL IV STA (13:05)
[2021-02-11 13:25] LABS: Basophils # 0.1 10*3/uL (0.0-0.2); Basophils % 0.3 % (0.0-0.8); Eosinophils % 0.2 % (0.00-10.9); Hematocrit 37.3 VOL% (35.7-47.0); Immature Granulocytes % 1.8 %; Immature Granulocytes Absolute 0.38 #; Lymphocytes # 1.3 10*3/uL (1.4-4.0); Lymphocytes % 6.3 % (21.3-54.2); Mean Corpuscular HGB Conc 32.7 GM/DL (32-36); Mean Corpuscular Volume 91.2 FL (87-102); Mean Platelet Volume 9.2 FL (9.6-12.0); Monocytes % 3.7 % (1.7-12.7); Neutrophils % 87.7 % (38.7-73.9); Red Cell Distribution Width 13.3 % (9.3-17.3); White Blood Count 21.1 T/CUMM (4-12)
[2021-02-11 13:26] LABS: Hemoglobin 12.2 GM/DL (12.0-16.0); Platelet Count 284 T/CUMM (130-400); Red Blood Count 4.09 MC/CUMM (3.8-5.5)
[2021-02-11 13:41] LABS: Bilirubin,Total 0.4 MG/DL (0.2-1.0); Osmolality,Calculated 270.7 MOS/KG (273-304); Potassium 4.4 MMOL/L (3.5-5.1); Total Protein 6.1 G/DL (6.4-8.2)
[2021-02-11 13:48] LABS: Anisocytosis Slight; Lymphocytes 6 % (20-55); Macrocytosis Slight; Microcytosis Slight; Platelet Estimate Normal; Polychromasia Slight; Segmented Neutrophils 93 % (50-85); Total Cells Counted 100
[2021-02-11 14:34] LABS: INR 1.8; PT Patient Result 18.5 SECS (9.8-11.9); Partial Thromboplastin Time 31.2 SECS (23.9-33.8)
[2021-02-11] MEDS ORDERED: ALBUTEROL 2.5 MG/3 ML NEB RESP TX PRN (15:55)
[2021-02-11] MEDS ORDERED: diphenhydrAMINE CAP 25 MG CAPSULE PO PRN (15:55)
[2021-02-11] MEDS ORDERED: DEXTROSE 50% 25 GM/50 ML VIAL IV PRN (15:55)
[2021-02-11] MEDS ORDERED: BISACODYL 5 MG TABLET PO PRN (15:55)
[2021-02-11] MEDS ORDERED: GLUCAGON 1 MG VIAL IM PRN (15:55)
[2021-02-11] MEDS ORDERED: ACETAMINOPHEN 325 MG TABLET PO PRN (15:55)
[2021-02-11] MEDS ORDERED: FLUTICASONE 50 MCG NASAL SPRAY 16 GM BOTTLE BOTH NARES PRN (16:11)
[2021-02-11] MEDS ORDERED: NITROGLYCERIN SL 0.4 MG TABLET SL PRN (16:11)
[2021-02-11] MEDS ORDERED: OLANZapine 2.5 MG TABLET PO PRN (16:11)
[2021-02-11] MEDS ORDERED: BENZONATATE 100 MG CAPSULE PO PRN (16:11)
[2021-02-11] MEDS ORDERED: AMOXICILLIN/CLAV 875 MG TABLET PO SCH (16:30)
[2021-02-11] MEDS: methylPREDNISolone SOD SUC 40 MG/1 ML VIAL IV SCH (17:17)
[2021-02-11] MEDS: PIPERACILLIN/TAZOBACTAM 3,375 MG in SODIUM CHLORIDE 0.9% 100 ML IV SCH (17:20)
[2021-02-11] MEDS: SODIUM CHLORIDE 0.9% 1,000 ML IV SCH (17:20)
[2021-02-11] MEDS ORDERED: ALBUTEROL/IPRATROPIUM 3 ML NEB RESP TX SCH (19:00)
[2021-02-11] MEDS: ALBUTEROL/IPRATROPIUM 3 ML NEB RESP TX SCH (19:29)
[2021-02-11] MEDS: TAMOXIFEN 10 MG TABLET PO SCH (20:38)
[2021-02-11] MEDS: PANTOPRAZOLE 40 MG TABLET PO SCH (20:38)
[2021-02-11] MEDS: carvediloL 6.25 MG TABLET PO SCH (20:38)
[2021-02-12] MEDS: ALBUTEROL/IPRATROPIUM 3 ML NEB RESP TX SCH ×6 (00:18→19:42)
[2021-02-12] MEDS: PIPERACILLIN/TAZOBACTAM 3,375 MG in SODIUM CHLORIDE 0.9% 100 ML IV SCH ×3 (00:28→17:55)
[2021-02-12] MEDS: methylPREDNISolone SOD SUC 40 MG/1 ML VIAL IV SCH ×3 (00:29→17:39)
[2021-02-12] MEDS: traZODone 50 MG TABLET PO PRN ×2 (00:29→21:19)
[2021-02-12 00:46] LABS: Basophils % 0.2 % (0.0-0.8); Hematocrit 33.6 VOL% (35.7-47.0); Hemoglobin 10.6 GM/DL (12.0-16.0); Immature Granulocytes % 1.4 %; Immature Granulocytes Absolute 0.25 #; Lymphocytes % 5.3 % (21.3-54.2); Mean Corpuscular HGB Conc 31.5 GM/DL (32-36); Mean Corpuscular Volume 94.1 FL (87-102); Mean Platelet Volume 9.6 FL (9.6-12.0); Monocytes % 1.3 % (1.7-12.7); Neutrophils % 91.8 % (38.7-73.9); Platelet Count 260 T/CUMM (130-400); Red Blood Count 3.57 MC/CUMM (3.8-5.5); Red Cell Distribution Width 13.3 % (9.3-17.3); White Blood Count 18.1 T/CUMM (4-12)
[2021-02-12 01:05] LABS: Calcium 8.5 MG/DL (8.5-10.1); Osmolality,Calculated 276.5 MOS/KG (273-304); Potassium 5.3 MMOL/L (3.5-5.1)
[2021-02-12 01:39] LABS: Lymphocytes 6 % (20-55); Metamyelocytes 1 %; Segmented Neutrophils 93 % (50-85); Total Cells Counted 100
[2021-02-12 01:40] LABS: Hypochromasia 2+; Platelet Estimate Normal; Polychromasia Few
[2021-02-12] MEDS: LEVOTHYROXINE 75 MCG TABLET PO SCH (06:16)
[2021-02-12] MEDS ORDERED: SODIUM POLYSTYRENE SULFATE 15 GM/60 ML BOTTLE PO ONE (08:03)
[2021-02-12] MEDS: DULoxetine 30 MG CAPSULE PO SCH (08:44)
[2021-02-12] MEDS: ASPIRIN EC 81 MG TABLET PO SCH (08:45)
[2021-02-12] MEDS: PANTOPRAZOLE 40 MG TABLET PO SCH ×2 (08:45→21:19)
[2021-02-12] MEDS: carvediloL 6.25 MG TABLET PO SCH (08:45)
[2021-02-12] MEDS: MULTIVITAMIN (CENTRUM) TABLET PO SCH (08:45)
[2021-02-12] MEDS: MONTELUKAST 10 MG TABLET PO SCH (08:45)
[2021-02-12] MEDS: ROSUVASTATIN 10 MG TABLET PO SCH (08:45)
[2021-02-12] MEDS ORDERED: carvediloL 6.25 MG TABLET PO SCH (14:04)
[2021-02-12] MEDS ORDERED: NEBIVOLOL 5 MG TABLET PO ONE (14:05)
[2021-02-12] MEDS: SODIUM CHLORIDE 0.9% 1,000 ML IV SCH (14:15)
[2021-02-12] MEDS ORDERED: carvediloL 12.5 MG TABLET PO SCH (21:00)
[2021-02-12] MEDS: TAMOXIFEN 10 MG TABLET PO SCH (21:19)
[2021-02-13] MEDS: ALBUTEROL/IPRATROPIUM 3 ML NEB RESP TX SCH ×7 (00:25→23:44)
[2021-02-13] MEDS: methylPREDNISolone SOD SUC 40 MG/1 ML VIAL IV SCH ×4 (00:45→23:33)
[2021-02-13] MEDS: PIPERACILLIN/TAZOBACTAM 3,375 MG in SODIUM CHLORIDE 0.9% 100 ML IV SCH ×3 (02:27→17:57)
[2021-02-13 05:13] LABS: Basophils # 0.1 10*3/uL (0.0-0.2); Basophils % 0.2 % (0.0-0.8); Hematocrit 31.3 VOL% (35.7-47.0); Hemoglobin 9.7 GM/DL (12.0-16.0); Immature Granulocytes % 1.8 %; Immature Granulocytes Absolute 0.46 #; Lymphocytes % 3.9 % (21.3-54.2); Mean Corpuscular Volume 94.6 FL (87-102); Mean Platelet Volume 9.8 FL (9.6-12.0); Monocytes % 2.6 % (1.7-12.7); Neutrophils % 91.5 % (38.7-73.9); Platelet Count 262 T/CUMM (130-400); Red Blood Count 3.31 MC/CUMM (3.8-5.5); Red Cell Distribution Width 13.6 % (9.3-17.3); White Blood Count 26.1 T/CUMM (4-12)
[2021-02-13 05:28] LABS: Calcium 8.3 MG/DL (8.5-10.1); Osmolality,Calculated 287.4 MOS/KG (273-304); Potassium 3.9 MMOL/L (3.5-5.1)
[2021-02-13 05:35] LABS: Hypochromasia 1+; Lymphocytes 7 % (20-55); Microcytosis 1+; Platelet Estimate Adequate; Segmented Neutrophils 91 % (50-85); Total Cells Counted 100
[2021-02-13] MEDS: LEVOTHYROXINE 75 MCG TABLET PO SCH (06:04)
[2021-02-13] MEDS ORDERED: NEBIVOLOL 10 MG TABLET PO SCH (09:00)
[2021-02-13] MEDS ORDERED: DIAZEPAM 5 MG TABLET PO ONE (09:48)
[2021-02-13] MEDS: ASPIRIN EC 81 MG TABLET PO SCH (10:02)
[2021-02-13] MEDS ORDERED: NEBIVOLOL 5 MG TABLET PO ONE (11:13)
[2021-02-13] MEDS ORDERED: POTASSIUM CHLORIDE 20 MEQ TABLET PO ONE (11:15)
[2021-02-13] MEDS: MULTIVITAMIN (CENTRUM) TABLET PO SCH (12:02)
[2021-02-13] MEDS: DULoxetine 30 MG CAPSULE PO SCH (12:03)
[2021-02-13] MEDS: ASCORBIC ACID 500 MG TABLET PO SCH ×2 (12:03→21:03)
[2021-02-13] MEDS: ROSUVASTATIN 10 MG TABLET PO SCH (12:03)
[2021-02-13] MEDS: PANTOPRAZOLE 40 MG TABLET PO SCH ×2 (12:06→21:03)
[2021-02-13] MEDS: MONTELUKAST 10 MG TABLET PO SCH (12:06)
[2021-02-13] MEDS: TAMOXIFEN 10 MG TABLET PO SCH (21:02)
[2021-02-14] MEDS ORDERED: amLODIPine 5 MG TABLET PO ONE (00:23)
[2021-02-14] MEDS: traZODone 50 MG TABLET PO PRN ×2 (00:49→21:32)
[2021-02-14] MEDS: PIPERACILLIN/TAZOBACTAM 3,375 MG in SODIUM CHLORIDE 0.9% 100 ML IV SCH ×3 (00:49→16:23)
[2021-02-14] MEDS: ALBUTEROL/IPRATROPIUM 3 ML NEB RESP TX SCH ×5 (03:43→19:33)
[2021-02-14 06:02] LABS: Basophils % 0.1 % (0.0-0.8); Hematocrit 31.3 VOL% (35.7-47.0); Hemoglobin 9.9 GM/DL (12.0-16.0); Immature Granulocytes % 3.1 %; Immature Granulocytes Absolute 0.67 #; Lymphocytes # 0.5 10*3/uL (1.4-4.0); Lymphocytes % 2.4 % (21.3-54.2); Mean Corpuscular HGB Conc 31.6 GM/DL (32-36); Mean Platelet Volume 9.8 FL (9.6-12.0); Monocytes % 2.6 % (1.7-12.7); Neutrophils % 91.8 % (38.7-73.9); Platelet Count 263 T/CUMM (130-400); Red Blood Count 3.26 MC/CUMM (3.8-5.5); Red Cell Distribution Width 13.6 % (9.3-17.3); White Blood Count 21.6 T/CUMM (4-12)
[2021-02-14] MEDS: LEVOTHYROXINE 75 MCG TABLET PO SCH (06:08)
[2021-02-14 06:24] LABS: Calcium 8.6 MG/DL (8.5-10.1); Osmolality,Calculated 283.8 MOS/KG (273-304); Potassium 4.1 MMOL/L (3.5-5.1)
[2021-02-14 06:32] LABS: Hypochromasia Slight; Lymphocytes 3 % (20-55); Microcytosis 1+; Nucleated Red Blood Cells 1 (0-5); Segmented Neutrophils 95 % (50-85); Total Cells Counted 100
[2021-02-14 06:33] LABS: Ovalocytes Slight; Platelet Estimate Normal
[2021-02-14] MEDS: methylPREDNISolone SOD SUC 40 MG/1 ML VIAL IV SCH ×4 (08:29→21:32)
[2021-02-14] MEDS: NEBIVOLOL 10 MG TABLET PO SCH (08:30)
[2021-02-14] MEDS: ROSUVASTATIN 10 MG TABLET PO SCH (08:30)
[2021-02-14] MEDS: MULTIVITAMIN (CENTRUM) TABLET PO SCH (08:31)
[2021-02-14] MEDS: DULoxetine 30 MG CAPSULE PO SCH (08:31)
[2021-02-14] MEDS: amLODIPine 5 MG TABLET PO SCH (08:32)
[2021-02-14] MEDS: ASPIRIN EC 81 MG TABLET PO SCH (08:32)
[2021-02-14] MEDS: PANTOPRAZOLE 40 MG TABLET PO SCH ×2 (08:32→21:34)
[2021-02-14] MEDS: MONTELUKAST 10 MG TABLET PO SCH (08:32)
[2021-02-14] MEDS: ASCORBIC ACID 500 MG TABLET PO SCH ×2 (08:32→21:33)
[2021-02-14] MEDS ORDERED: FUROSEMIDE 40 MG/4 ML VIAL IV ONE (08:36)
[2021-02-14 10:03] LABS: INR 1.1; PT Patient Result 11.4 SECS (9.8-11.9)
[2021-02-14] MEDS: hydrALAZINE 20 MG/1 ML VIAL IV PRN (16:23)
[2021-02-14] MEDS: MORPHINE 4 MG/1 ML VIAL IV PRN (17:15)
[2021-02-14] MEDS: TAMOXIFEN 10 MG TABLET PO SCH (21:32)
[2021-02-15] MEDS: ALBUTEROL/IPRATROPIUM 3 ML NEB RESP TX SCH ×7 (00:01→23:51)
[2021-02-15] MEDS: PIPERACILLIN/TAZOBACTAM 3,375 MG in SODIUM CHLORIDE 0.9% 100 ML IV SCH ×3 (00:58→18:00)
[2021-02-15] MEDS: methylPREDNISolone SOD SUC 40 MG/1 ML VIAL IV SCH ×4 (04:09→21:08)
[2021-02-15 05:50] LABS: Basophils % 0.1 % (0.0-0.8); Hematocrit 29.9 VOL% (35.7-47.0); Hemoglobin 9.4 GM/DL (12.0-16.0); Immature Granulocytes % 2.7 %; Immature Granulocytes Absolute 0.53 #; Lymphocytes # 0.8 10*3/uL (1.4-4.0); Lymphocytes % 4.1 % (21.3-54.2); Mean Corpuscular HGB Conc 31.4 GM/DL (32-36); Mean Corpuscular Volume 95.5 FL (87-102); Monocytes % 5.7 % (1.7-12.7); Neutrophils % 87.4 % (38.7-73.9); Platelet Count 263 T/CUMM (130-400); Red Blood Count 3.13 MC/CUMM (3.8-5.5); Red Cell Distribution Width 13.7 % (9.3-17.3); White Blood Count 19.4 T/CUMM (4-12)
[2021-02-15] MEDS: LEVOTHYROXINE 75 MCG TABLET PO SCH (06:00)
[2021-02-15 06:03] LABS: Calcium 8.8 MG/DL (8.5-10.1); Potassium 4.1 MMOL/L (3.5-5.1)
[2021-02-15 06:20] LABS: Anisocytosis 1+; Band Neutrophils 5 % (0-10); Basophilic Stippling Slight; Lymphocytes 5 % (20-55); Platelet Estimate Normal; Segmented Neutrophils 83 % (50-85); Total Cells Counted 100
[2021-02-15 06:21] LABS: Macrocytosis Slight
[2021-02-15] MEDS: MULTIVITAMIN (CENTRUM) TABLET PO SCH (08:11)
[2021-02-15] MEDS: NEBIVOLOL 10 MG TABLET PO SCH (08:11)
[2021-02-15] MEDS: DULoxetine 30 MG CAPSULE PO SCH (08:11)
[2021-02-15] MEDS: PANTOPRAZOLE 40 MG TABLET PO SCH ×2 (08:11→21:07)
[2021-02-15] MEDS: MONTELUKAST 10 MG TABLET PO SCH (08:12)
[2021-02-15] MEDS: amLODIPine 5 MG TABLET PO SCH (08:12)
[2021-02-15] MEDS: ROSUVASTATIN 10 MG TABLET PO SCH (08:12)
[2021-02-15] MEDS: hydrALAZINE 20 MG/1 ML VIAL IV PRN (08:12)
[2021-02-15] MEDS: ASCORBIC ACID 500 MG TABLET PO SCH ×2 (08:12→21:07)
[2021-02-15] MEDS: ASPIRIN EC 81 MG TABLET PO SCH (08:12)
[2021-02-15] MEDS ORDERED: NEBIVOLOL 10 MG TABLET PO ONE (09:26)
[2021-02-15 10:53] LABS: Lymphocytes,Pleural Fluid 91 %; Monocytes,Pleural Fluid 1 %; Neutrophils,Pleural Fluid 8 %
[2021-02-15 10:55] LABS: Total Protein,Body Fluid < 2.0 G/DL
[2021-02-15 11:03] LABS: RBC,Pleural Fluid 1121 T/CUMM
[2021-02-15] MEDS: ONDANSETRON 4 MG/2 ML VIAL IV PRN (16:00)
[2021-02-15] MEDS: traZODone 50 MG TABLET PO PRN (21:07)
[2021-02-15] MEDS: TAMOXIFEN 10 MG TABLET PO SCH (21:07)
[2021-02-16] MEDS: PIPERACILLIN/TAZOBACTAM 3,375 MG in SODIUM CHLORIDE 0.9% 100 ML IV SCH ×3 (01:22→16:45)
[2021-02-16] MEDS: ALBUTEROL/IPRATROPIUM 3 ML NEB RESP TX SCH ×6 (03:21→23:51)
[2021-02-16] MEDS: methylPREDNISolone SOD SUC 40 MG/1 ML VIAL IV SCH ×4 (04:02→20:51)
[2021-02-16 05:25] LABS: Basophils % 0.2 % (0.0-0.8); Hematocrit 29.1 VOL% (35.7-47.0); Immature Granulocytes % 2.9 %; Immature Granulocytes Absolute 0.57 #; Lymphocytes # 0.8 10*3/uL (1.4-4.0); Lymphocytes % 3.8 % (21.3-54.2); Mean Corpuscular HGB Conc 30.9 GM/DL (32-36); Mean Corpuscular Volume 95.1 FL (87-102); Mean Platelet Volume 10.7 FL (9.6-12.0); Monocytes % 4.2 % (1.7-12.7); Neutrophils % 88.9 % (38.7-73.9); Platelet Count 234 T/CUMM (130-400); Red Blood Count 3.06 MC/CUMM (3.8-5.5); Red Cell Distribution Width 14.1 % (9.3-17.3); White Blood Count 19.9 T/CUMM (4-12)
[2021-02-16 05:40] LABS: Calcium 8.7 MG/DL (8.5-10.1); Osmolality,Calculated 289.5 MOS/KG (273-304); Potassium 4.7 MMOL/L (3.5-5.1)
[2021-02-16] MEDS: LEVOTHYROXINE 75 MCG TABLET PO SCH (05:46)
[2021-02-16 06:39] LABS: Lymphocytes 2 % (20-55); Segmented Neutrophils 98 % (50-85); Total Cells Counted 100
[2021-02-16 06:40] LABS: Hypochromasia Slight; Platelet Estimate Adequate
[2021-02-16] MEDS: ASCORBIC ACID 500 MG TABLET PO SCH ×2 (09:10→20:47)
[2021-02-16] MEDS: MONTELUKAST 10 MG TABLET PO SCH (09:10)
[2021-02-16] MEDS: ROSUVASTATIN 10 MG TABLET PO SCH (09:10)
[2021-02-16] MEDS: DULoxetine 30 MG CAPSULE PO SCH (09:10)
[2021-02-16] MEDS: PANTOPRAZOLE 40 MG TABLET PO SCH ×2 (09:10→20:47)
[2021-02-16] MEDS: ASPIRIN EC 81 MG TABLET PO SCH (09:10)
[2021-02-16] MEDS: amLODIPine 5 MG TABLET PO SCH (09:10)
[2021-02-16] MEDS: NEBIVOLOL 10 MG TABLET PO SCH (09:10)
[2021-02-16] MEDS: MULTIVITAMIN (CENTRUM) TABLET PO SCH (09:11)
[2021-02-16] MEDS: MORPHINE 4 MG/1 ML VIAL IV PRN (12:22)
[2021-02-16 13:37] LABS: Bacteria,Urine Occasional /HPF (Few); Bilirubin,Urine Negative (Negative); Blood, Urine Negative (Negative); Glucose,Urine (UA) 50 mg/dL (Negative); Hyaline Casts,Urine 1 /LPF (0-3); Ketones,Urine 5 mg/dL (Negative); Mucus,Urine Occasional /LPF (Occasional); Nitrite,Urine Negative (Negative); Protein,Urine 30 MG/DL; RBC,Urine 1 /HPF (0-4); Squamous Epithelial Cell,Urine Occasional /HPF (0-10); Urine Appearance CLEAR (Clear); Urine Color Yellow (Yellow); Urine Specific Gravity 1.027 (1.001-1.035); Urine Urobilinogen < 2.0 EU/DL (0.2-1.0); WBC,Urine 1 /HPF (0-6)
[2021-02-16] MEDS: hydrALAZINE 20 MG/1 ML VIAL IV PRN (16:45)
[2021-02-16] MEDS: TAMOXIFEN 10 MG TABLET PO SCH (20:47)
[2021-02-16] MEDS: traZODone 50 MG TABLET PO PRN (20:48)
[2021-02-17] MEDS: PIPERACILLIN/TAZOBACTAM 3,375 MG in SODIUM CHLORIDE 0.9% 100 ML IV SCH ×3 (00:34→16:12)
[2021-02-17] MEDS: methylPREDNISolone SOD SUC 40 MG/1 ML VIAL IV SCH ×4 (02:42→20:11)
[2021-02-17] MEDS: ALBUTEROL/IPRATROPIUM 3 ML NEB RESP TX SCH ×5 (03:17→19:59)
[2021-02-17] MEDS: LEVOTHYROXINE 75 MCG TABLET PO SCH (05:35)
[2021-02-17 06:45] LABS: Basophils % 0.1 % (0.0-0.8); Hematocrit 32.1 VOL% (35.7-47.0); Hemoglobin 9.5 GM/DL (12.0-16.0); Immature Granulocytes % 3.1 %; Immature Granulocytes Absolute 0.65 #; Lymphocytes # 0.9 10*3/uL (1.4-4.0); Lymphocytes % 4.1 % (21.3-54.2); Mean Corpuscular HGB Conc 29.6 GM/DL (32-36); Monocytes % 5.5 % (1.7-12.7); Neutrophils % 87.2 % (38.7-73.9); Platelet Count 274 T/CUMM (130-400); Red Blood Count 3.21 MC/CUMM (3.8-5.5); Red Cell Distribution Width 14.2 % (9.3-17.3); White Blood Count 20.9 T/CUMM (4-12)
[2021-02-17 07:18] LABS: Calcium 9.1 MG/DL (8.5-10.1); Osmolality,Calculated 290.7 MOS/KG (273-304); Potassium 5.1 MMOL/L (3.5-5.1)
[2021-02-17] MEDS: MORPHINE 4 MG/1 ML VIAL IV PRN ×3 (07:23→17:29)
[2021-02-17] MEDS: NEBIVOLOL 10 MG TABLET PO SCH (08:56)
[2021-02-17] MEDS: ASPIRIN EC 81 MG TABLET PO SCH (08:56)
[2021-02-17] MEDS: ASCORBIC ACID 500 MG TABLET PO SCH ×2 (08:56→20:09)
[2021-02-17] MEDS: MULTIVITAMIN (CENTRUM) TABLET PO SCH (08:56)
[2021-02-17] MEDS: MONTELUKAST 10 MG TABLET PO SCH (08:56)
[2021-02-17] MEDS: ROSUVASTATIN 10 MG TABLET PO SCH (08:57)
[2021-02-17] MEDS: DULoxetine 30 MG CAPSULE PO SCH (08:57)
[2021-02-17] MEDS: amLODIPine 5 MG TABLET PO SCH (08:58)
[2021-02-17] MEDS: PANTOPRAZOLE 40 MG TABLET PO SCH ×2 (08:58→20:09)
[2021-02-17 09:34] LABS: Lymphocytes 2 % (20-55); Platelet Estimate Normal; Polychromasia Slight; Segmented Neutrophils 92 % (50-85); Stomatocytes Slight; Total Cells Counted 100
[2021-02-17] MEDS: ONDANSETRON 4 MG/2 ML VIAL IV PRN (12:08)
[2021-02-17] MEDS: TAMOXIFEN 10 MG TABLET PO SCH (20:09)
[2021-02-17] MEDS: traZODone 50 MG TABLET PO PRN (20:09)
[2021-02-18] MEDS: PIPERACILLIN/TAZOBACTAM 3,375 MG in SODIUM CHLORIDE 0.9% 100 ML IV SCH ×3 (00:21→17:01)
[2021-02-18] MEDS: ALBUTEROL/IPRATROPIUM 3 ML NEB RESP TX SCH ×7 (00:33→23:56)
[2021-02-18] MEDS: methylPREDNISolone SOD SUC 40 MG/1 ML VIAL IV SCH ×4 (03:09→21:02)
[2021-02-18] MEDS: LEVOTHYROXINE 75 MCG TABLET PO SCH (05:36)
[2021-02-18 05:47] LABS: Basophils % 0.2 % (0.0-0.8); Hematocrit 31.7 VOL% (35.7-47.0); Hemoglobin 9.5 GM/DL (12.0-16.0); Immature Granulocytes % 2.9 %; Immature Granulocytes Absolute 0.61 #; Lymphocytes # 0.7 10*3/uL (1.4-4.0); Lymphocytes % 3.5 % (21.3-54.2); Mean Corpuscular Volume 98.8 FL (87-102); Mean Platelet Volume 9.9 FL (9.6-12.0); Monocytes % 5.5 % (1.7-12.7); Neutrophils % 87.9 % (38.7-73.9); Platelet Count 235 T/CUMM (130-400); Red Blood Count 3.21 MC/CUMM (3.8-5.5)
[2021-02-18 06:12] LABS: Calcium 8.4 MG/DL (8.5-10.1); Osmolality,Calculated 296.1 MOS/KG (273-304); Potassium 5.1 MMOL/L (3.5-5.1)
[2021-02-18 06:13] LABS: Hypochromasia 1+; Lymphocytes 1 % (20-55); Metamyelocytes 1 %; Segmented Neutrophils 93 % (50-85); Total Cells Counted 100
[2021-02-18 06:14] LABS: Microcytosis 1+; Ovalocytes Slight
[2021-02-18 06:16] LABS: Platelet Estimate Normal
[2021-02-18] MEDS: ASPIRIN EC 81 MG TABLET PO SCH (08:57)
[2021-02-18] MEDS: NEBIVOLOL 10 MG TABLET PO SCH (08:57)
[2021-02-18] MEDS: DULoxetine 30 MG CAPSULE PO SCH (08:57)
[2021-02-18] MEDS: amLODIPine 5 MG TABLET PO SCH (08:58)
[2021-02-18] MEDS: PANTOPRAZOLE 40 MG TABLET PO SCH ×2 (08:58→21:02)
[2021-02-18] MEDS: MORPHINE 4 MG/1 ML VIAL IV PRN ×4 (10:54→21:16)
[2021-02-18] MEDS: TAMOXIFEN 10 MG TABLET PO SCH (21:02)
[2021-02-19] MEDS: PIPERACILLIN/TAZOBACTAM 3,375 MG in SODIUM CHLORIDE 0.9% 100 ML IV SCH (01:12)
[2021-02-19] MEDS: ALBUTEROL/IPRATROPIUM 3 ML NEB RESP TX SCH ×5 (03:52→20:17)
[2021-02-19] MEDS: methylPREDNISolone SOD SUC 40 MG/1 ML VIAL IV SCH ×4 (03:54→20:25)
[2021-02-19] MEDS: PANTOPRAZOLE 40 MG TABLET PO SCH ×2 (08:37→20:25)
[2021-02-19] MEDS: ASPIRIN EC 81 MG TABLET PO SCH (08:37)
[2021-02-19] MEDS: amLODIPine 5 MG TABLET PO SCH (08:38)
[2021-02-19] MEDS: DULoxetine 30 MG CAPSULE PO SCH (08:38)
[2021-02-19] MEDS: MORPHINE 4 MG/1 ML VIAL IV PRN ×3 (08:38→17:26)
[2021-02-19] MEDS: NEBIVOLOL 10 MG TABLET PO SCH (08:38)
[2021-02-19] MEDS ORDERED: ONDANSETRON 4 MG/2 ML VIAL IV PRN (09:14)
[2021-02-19] MEDS ORDERED: ALUMINUM/MAGNES/SIMETH MAX STR 30 ML UDCUP PO PRN (09:14)
[2021-02-19] MEDS ORDERED: LOPERAMIDE 2 MG CAPSULE PO PRN ×2 (09:14)
[2021-02-19] MEDS ORDERED: TEMAZEPAM 7.5 MG CAPSULE PO PRN (09:14)
[2021-02-19] MEDS ORDERED: chlorproMAZINE INJ 25 MG in SODIUM CHLORIDE 0.9% 100 ML IV PRN (09:14)
[2021-02-19] MEDS ORDERED: MAGNESIUM HYDROXIDE SUSP 30 ML UDCUP PO PRN (09:14)
[2021-02-19] MEDS ORDERED: diphenhydrAMINE CAP 25 MG CAPSULE PO PRN (09:14)
[2021-02-19] MEDS ORDERED: chlorproMAZINE INJ 50 MG in SODIUM CHLORIDE 0.9% 100 ML IV PRN (09:14)
[2021-02-19] MEDS ORDERED: MYLANTA/LIDO VISC 2:1 300 ML BOTTLE SWISH/SPIT PRN (09:14)
[2021-02-19] MEDS ORDERED: MYLANTA/LIDO VISC 2:1 300 ML BOTTLE SWISH/SWAL PRN (09:14)
[2021-02-19] MEDS ORDERED: traMADol 50 MG TABLET PO PRN (09:14)
[2021-02-19] MEDS ORDERED: PROMETHAZINE INJ 25 MG in SODIUM CHLORIDE 0.9% 50 ML IV PRN (09:14)
[2021-02-19] MEDS ORDERED: guaiFENesin 200 MG/10 ML UDCUP PO PRN (09:14)
[2021-02-19] MEDS: ALPRAZolam 0.25 MG TABLET PO PRN (11:15)
[2021-02-20] MEDS: ALBUTEROL/IPRATROPIUM 3 ML NEB RESP TX SCH ×6 (02:30→19:39)
[2021-02-20] MEDS: methylPREDNISolone SOD SUC 40 MG/1 ML VIAL IV SCH ×4 (03:15→20:12)
[2021-02-20] MEDS: MORPHINE 4 MG/1 ML VIAL IV PRN ×4 (08:27→18:01)
[2021-02-20] MEDS: ASPIRIN EC 81 MG TABLET PO SCH (09:06)
[2021-02-20] MEDS: DULoxetine 30 MG CAPSULE PO SCH (09:11)
[2021-02-20] MEDS: PANTOPRAZOLE 40 MG TABLET PO SCH ×2 (09:12→20:12)
[2021-02-20] MEDS: NEBIVOLOL 10 MG TABLET PO SCH (09:13)
[2021-02-20] MEDS: ALPRAZolam 0.25 MG TABLET PO PRN (09:15)
[2021-02-20] MEDS: hydrALAZINE 20 MG/1 ML VIAL IV PRN (11:39)
[2021-02-21] MEDS: methylPREDNISolone SOD SUC 40 MG/1 ML VIAL IV SCH ×2 (03:39→09:17)
[2021-02-21] MEDS: ALBUTEROL/IPRATROPIUM 3 ML NEB RESP TX SCH ×4 (07:07→14:31)
[2021-02-21] MEDS: NEBIVOLOL 10 MG TABLET PO SCH (09:05)
[2021-02-21] MEDS: ASPIRIN EC 81 MG TABLET PO SCH (09:06)
[2021-02-21] MEDS: DULoxetine 30 MG CAPSULE PO SCH (09:06)
[2021-02-21] MEDS: PANTOPRAZOLE 40 MG TABLET PO SCH (09:09)
[2021-02-21] MEDS: MORPHINE 4 MG/1 ML VIAL IV PRN (09:10)
[2021-02-21] MEDS ORDERED: TUBERCULIN SKIN TEST 0.1 ML SYRINGE INTRADERM ONE (09:39)
[2021-02-21] MEDS ORDERED: fentaNYL 12 MCG/HR PATCH TRANSDERM SCH (10:00)
[2021-02-21 15:52] VITALS: BP 164/54
[2021-02-21] MEDS: hydrALAZINE 20 MG/1 ML VIAL IV PRN (15:59)
[2021-02-21] MEDS ORDERED: DESITIN 4OZ/NYSTATIN 15 GRAM MIXTURE PASTE TOP SCH (21:00)
[2021-02-23] MEDS ORDERED: fentaNYL 12 MCG/HR PATCH TRANSDERM SCH (13:00)
== END 2021-02-21 18:14 | disposition hospice, inpatient (51) | DRG 181 ==
LOC: N.ED 12:45 → N.EDINP 12:45 → N.TELEN 16:27 → N.4E 02-15 17:40
PROVIDERS: ADMIT Internal Medicine; ATTEND Internal Medicine

== ENCOUNTER 2021-02-21 15:39 | Inpatient (IN) ==
[2021-02-21] MEDS ORDERED: MORPHINE 4 MG/1 ML VIAL IV PRN (18:56)
[2021-02-21] MEDS ORDERED: ONDANSETRON 4 MG/2 ML VIAL IV PRN (18:58)
[2021-02-21] MEDS ORDERED: DESITIN 4OZ/NYSTATIN 15 GRAM MIXTURE PASTE TOP SCH (21:00)
[2021-02-22] MEDS: MORPHINE 4 MG/1 ML VIAL IV PRN ×2 (07:21→11:13)
[2021-02-22 11:04] VITALS: BP 128/58
[2021-02-22] MEDS: fentaNYL 12 MCG/HR PATCH TRANSDERM SCH ×2 (11:15→11:31)
[2021-02-24] MEDS ORDERED: fentaNYL 12 MCG/HR PATCH TRANSDERM SCH (09:00)
== END 2021-02-22 11:27 | disposition expired | DRG 951 ==
LOC: N.4E 15:39
PROVIDERS: ADMIT Internal Medicine; ATTEND Internal Medicine